=== PATIENT | male | born 1955 | race Caucasian/White ===

== ENCOUNTER 2017-01-29 19:12 | Emergency (ER) | payer OTHER, MEDICAID ==
[~2017-01-29 19:12] MED LIST: AMLODIPINE10 M1 PO; ASCRIPTIN1 TAB PO; ASPIR 8181 MG PO; CARVEDILOL12.5 M1 PO; CARVEDILOL3.125 M1 PO; CLONIDINE HCL0.1 MG PO; CLONIDINE HCL0.2 MG PO; COMINH INH; COUMADIN1 MG PO; HYDRALAZINE HYD50 MG PO; INSULIN SQ; LAC PO; LASIX40 MG PO; LEV250 PO; LIPITOR40 MG PO; RENAL CAPS1 SGL PO; RENAL MULTIVIT PO
[2017-01-29 20:20] VITALS: BP 150/76
== END 2017-01-29 20:20 | disposition home or self-care (01) ==
LOC: ED 19:12
DX: L73.9 Follicular disorder, unspecified (principal); I12.0 Hypertensive chronic kidney disease with stage 5 chronic kidney disease or end stage renal disease; E11.22 Type 2 diabetes mellitus with diabetic chronic kidney disease; N18.6 End stage renal disease; Z99.2 Dependence on renal dialysis; Z88.8 Allergy status to other drugs, medicaments and biological substances; Z89.612 Acquired absence of left leg above knee; Z89.611 Acquired absence of right leg above knee

== ENCOUNTER 2018-08-13 20:04 | Inpatient (IN) | payer OTHER, MEDICAID ==
[~2018-08-13] VITALS: Ht 104.1 cm; Wt 64.6 kg
[~2018-08-13 20:04] MED LIST changes: -CLONIDINE HCL0.2 MG PO; +CLONIDINE HYDR0.3 M1 PO; -COUMADIN1 MG PO; +COUMADIN2 MG PO
[2018-08-13 20:07] VITALS: Ht 104.1 cm; Wt 64.6 kg
[2018-08-13 20:54] LABS: BASOPHIL % 0.4 % (0-2); PLATELET COUNT 288 x10^3mcL (130-400); RED CELL DISTRIBUTION WIDTH 14.4 % (11.5-14.5)
[2018-08-13 21:04] LABS: CALCIUM 8.3 mg/dL (8.5-10.1); CARBON DIOXIDE 35.3 mmol/L (21-32); CHLORIDE SERUM 96 mmol/L (98-107); CREATININE SERUM 3.2 mg/dL (0.7-1.3); GFR1 21 mL/min; GLUCOSE SERUM 204 mg/dL (74-106); POTASSIUM SERUM 3.5 mmol/L (3.5-5.1); SODIUM SERUM 134 mmol/L (136-145)
[2018-08-13 21:14] LABS: ALBUMIN 2.9 g/dL (3.4-5.0); ALKALINE PHOSPHATASE 104 U/L (46-116); ALT/SGPT 14 U/L (16-63); AST/SGOT 13 U/L (15-37); BILIRUBIN TOTAL 0.33 mg/dL (0.20-1.00)
[2018-08-13] MEDS ORDERED: SENNA8.6 M2 PO (23:00)
[2018-08-13] MEDS ORDERED: COLACE100 MG PO (23:01)
[2018-08-13 23:58] VITALS: BP 144/58
[2018-08-14 00:13] LABS: CHOLESTEROL/HDL RATIO 2.2; PHOSPHOROUS 4.9 mg/dL (2.5-4.9)
[2018-08-14 00:34] LABS: FREE T4 0.55 ng/dL (0.76-1.46)
[2018-08-14 00:37] LABS: FREE THYROXINE INDEX 0.5 ug/dL (1.4-4.5); T4(THYROXINE) 1.1 ug/dL (4.7-13.3)
[2018-08-14 00:56] LABS: T3 TOTAL 0.22 ng/mL
[2018-08-14 04:18] VITALS: BP 144/61
[2018-08-14 06:24] LABS: BASOPHIL % 0.4 % (0-2); PLATELET COUNT 265 x10^3mcL (130-400); RED CELL DISTRIBUTION WIDTH 14.4 % (11.5-14.5)
[2018-08-14 07:09] LABS: CALCIUM 8.1 mg/dL (8.5-10.1); CREATININE SERUM 3.6 mg/dL (0.7-1.3); POTASSIUM SERUM 3.8 mmol/L (3.5-5.1)
[2018-08-14 08:12] VITALS: BP 142/60
[2018-08-14 12:42] VITALS: BP 148/55
[2018-08-14 16:32] VITALS: BP 152/53
[2018-08-14 20:59] VITALS: BP 170/59
[2018-08-14 21:30] VITALS: BP 158/57
[2018-08-15 05:32] VITALS: BP 168/63
[2018-08-15 07:54] LABS: CALCIUM 8.7 mg/dL (8.5-10.1); CARBON DIOXIDE 29.7 mmol/L (21-32); MAGNESIUM 2.2 mg/dL (1.8-2.4); PHOSPHOROUS 6.7 mg/dL (2.5-4.9); POTASSIUM SERUM 4.5 mmol/L (3.5-5.1)
[2018-08-15 08:10] LABS: BASOPHIL % 0.5 % (0-2)
[2018-08-15 08:12] LABS: PLATELET COUNT 340 x10^3mcL (130-400)
[2018-08-15 08:13] LABS: RED CELL DISTRIBUTION WIDTH 14.9 % (11.5-14.5)
[2018-08-15 08:29] LABS: CREATININE SERUM 4.7 mg/dL (0.7-1.3)
[2018-08-15 09:08] VITALS: BP 152/48
[2018-08-15 13:59] VITALS: BP 155/54
[2018-08-15 16:40] VITALS: BP 162/59
[2018-08-15 21:28] VITALS: BP 160/59
[2018-08-16 05:42] VITALS: BP 173/61
[2018-08-16 06:08] LABS: CALCIUM 8.9 mg/dL (8.5-10.1); CARBON DIOXIDE 32.1 mmol/L (21-32); POTASSIUM SERUM 3.9 mmol/L (3.5-5.1)
[2018-08-16 07:15] LABS: BASOPHIL % 0.4 % (0-2); PLATELET COUNT 334 x10^3mcL (130-400); RED CELL DISTRIBUTION WIDTH 14.4 % (11.5-14.5)
[2018-08-16 09:08] VITALS: BP 149/65
== END 2018-08-16 12:03 | disposition left against medical advice (07) | DRG 314 ==
LOC: ED 20:04 → DU 22:57
PROVIDERS: Emergency Medicine; Family Medicine
PROC: 0HQCXZZ Repair Left Upper Arm Skin, External Approach (ICD-10-PCS; principal; 2018-08-13)
DX: T82.838A Hemorrhage due to vascular prosthetic devices, implants and grafts, initial encounter (principal); N18.6 End stage renal disease; I50.43 Acute on chronic combined systolic (congestive) and diastolic (congestive) heart failure; B02.8 Zoster with other complications; D68.32 Hemorrhagic disorder due to extrinsic circulating anticoagulants; I13.2 Hypertensive heart and chronic kidney disease with heart failure and with stage 5 chronic kidney disease, or end stage renal disease; Z68.41 Body mass index [BMI] 40.0-44.9, adult; E44.0 Moderate protein-calorie malnutrition; E87.1 Hypo-osmolality and hyponatremia; E11.22 Type 2 diabetes mellitus with diabetic chronic kidney disease; E11.42 Type 2 diabetes mellitus with diabetic polyneuropathy; L89.151 Pressure ulcer of sacral region, stage 1; H54.62 Unqualified visual loss, left eye, normal vision right eye; E78.5 Hyperlipidemia, unspecified; Z99.3 Dependence on wheelchair; Z99.2 Dependence on renal dialysis; Z89.612 Acquired absence of left leg above knee; Z89.611 Acquired absence of right leg above knee; F17.210 Nicotine dependence, cigarettes, uncomplicated
CPT/HCPCS: 82962; 83880; 84439; J2001; J2405; J3430; J3490; J7030; Q0092

== ENCOUNTER 2019-03-25 22:20 | Inpatient (IN) | payer OTHER, MEDICAID ==
[~2019-03-25] VITALS: Ht 132.1 cm; Wt 59.9 kg
[~2019-03-25 22:20] MED LIST changes: +COLACE100 MG PO; +SENNA8.6 M2 PO
[2019-03-25 22:26] VITALS: Ht 132.1 cm; Wt 59.9 kg
--- NOTE | 2019-03-25 22:38 | NUR ---
PT BROUGHT IN BY AMBULANCE AFTER CALLED 911 FOR DIARRHEA, DARK BLACK STOOL X 10DAYS. PER PARAMEDICS, PT HAS HAD GENERALIZED WEAKNESS WELL. PT COMPLAINS OF SHARP LOWER BACK PAIN. PARAMEDICS ALSO STATED VERBALIZED PT STOPPED BLOOD THINNERS. PT AWAKE, ALERT, RESPIRATIONS EVEN AND UNLABORED. SAFETY PRECAUTIONS IN PLACE
--- NOTE | 2019-03-25 23:16 | NUR ---
XRAY AT BEDSIDE
--- NOTE | 2019-03-25 23:41 | NUR ---
HOTEL ADMINISTRATIVE ASSISTANT IN ROOM DRAWING BLOOD
[2019-03-26] VITALS (7 sets, daily range): BP systolic 112–157; BP diastolic 50–96
[2019-03-26 00:16] LABS: BASOPHIL % 1.5 % (0-2); PLATELET COUNT 184 x10^3mcL (130-400)
[2019-03-26 00:30] LABS: BILIRUBIN TOTAL 0.7 mg/dL (0.20-1.00); CALCIUM 9.3 mg/dL (8.5-10.1); CARBON DIOXIDE 36.9 mmol/L (21-32); CREATININE SERUM 3.4 mg/dL (0.7-1.3); POTASSIUM SERUM 3.5 mmol/L (3.5-5.1); TOTAL PROTEIN, SERUM 6.6 g/dL (6.4-8.2)
[2019-03-26 00:42] LABS: ALBUMIN 2.4 g/dL (3.4-5.0)
[2019-03-26] MEDS ORDERED: ELIQUIS2.5 MG PO (01:27)
[2019-03-26] MEDS ORDERED: GOOD SENSE ASPI81 M3 PO (01:27)
[2019-03-26] MEDS ORDERED: BISAC-EVAC10 MG RC (01:28)
[2019-03-26] MEDS ORDERED: TOPROL XL25 MG PO (01:29)
[2019-03-26] MEDS ORDERED: RENVELA800 M1 PO (01:29)
[2019-03-26] MEDS ORDERED: MULTI-VITAMINS1 TAB PO (01:29)
[2019-03-26] MEDS ORDERED: PANTOPRAZOLE SO40 M1 PO (01:29)
--- NOTE | 2019-03-26 02:12 | NUR ---
ABAD ATTEMPTING IV ACCESS
[2019-03-26 02:15] LABS: CHOLESTEROL/HDL RATIO 1.7
[2019-03-26 02:21] LABS: T3 TOTAL 0.15 ng/mL
[2019-03-26 02:28] LABS: FREE T4 1.01 ng/dL (0.76-1.46)
[2019-03-26 02:31] LABS: FREE THYROXINE INDEX 1.4 ug/dL (1.4-4.5)
--- NOTE | 2019-03-26 02:57 | NUR ---
RECEIVED PT FROM ED. PT A/OX4. DENIES SOB ON RA. PT WITH BILATERAL ABOVE KNEE AMPUTATIONS. IN NO ACUTE DISTRESS. IV PATENT, INTACT. ORIENTED PT TO ROOM AND SURROUNDINGS. CALL LIGHT WITHIN REACH, BED IN LOW POSITION. WILL CONTINUE TO MONITOR.
[2019-03-26 06:32] LABS: BASOPHIL % 1.4 % (0-2); PLATELET COUNT 178 x10^3mcL (130-400)
[2019-03-26 06:38] LABS: RED CELL DISTRIBUTION WIDTH 23.8 % (11.5-14.5)
[2019-03-26 06:50] LABS: CALCIUM 9.5 mg/dL (8.5-10.1); CARBON DIOXIDE 32.3 mmol/L (21-32); CREATININE SERUM 3.6 mg/dL (0.7-1.3); PHOSPHOROUS 4.5 mg/dL (2.5-4.9); POTASSIUM SERUM 3.8 mmol/L (3.5-5.1)
--- NOTE | 2019-03-26 07:04 | NUR ---
PT RESTING IN NO ACUTE DISTRESS. RR EVEN/UNLABORED. CALL LIGHT WITHIN REACH, BED IN LOW POSITION. WILL ENDORSE CARE TO ONCOMING SHIFT
--- NOTE | 2019-03-26 08:21 | NUR ---
COMPLAINTS OF BACK PAIN STATED SEVERE 10/10 ON PAIN SCALE, REFUSED NORCO OFFERRED. WILL NOTIFY DOCTOR.
--- NOTE | 2019-03-26 09:12 | NUR ---
DOCTOR FERMIN SOLIS AT BEDSIDE.
--- NOTE | 2019-03-26 09:21 | NUR ---
DILAUDID 0.5MG IVP SLOWLY GIVEN FOR SEVERE BACK PAIN. NO ADVERSE REACTION NOTED. WILL CONTINUE TO MONITOR.
--- NOTE | 2019-03-26 09:30 | NUR ---
NOTED DRY SCABS TO RIGHT GROIN, PATIENT'S SPOUSE STATED THAT FROM PACEMAKER PROCEDURE, PHOTO TAKEN, KEPT ELECTRICAL AND RADIO MECHANIC. BLANCHABLE REDNESS TO SACRAL AREA, Z GUARD APPLIED, COVERED WITH OPTIFOAM, PHOTO TAKEN, DRY SCABS TO CHEST PHOTO TAKEN. NOTED PATIENT ABLE TO GRASP SIDERAIL AND TURN SELF IN BED.
[2019-03-26 09:41] LABS: rbc morphology (normal/abnorm) ABNORMAL (NORMAL)
--- NOTE | 2019-03-26 10:02 | NUR ---
PATIENT AND SPOUSE VERBALIZED UNDERSTANDING PLAN OF EGD STATED DOCTOR WAS HERE ALREADY EXPLAINED TO THEM. PATIENT IS AWAKE, ALERT, ORIENED X4, STATED I COULDN'T SEE IT WELL MY WILL SIGN IT FOR ME, CONSENT FOR ESOPHAGASTRODUODENOSCOPY SIGNED BY PATIENT'S SPOUSE WHO IS AWAKE, ALERT, ORIENTED X4.
--- NOTE | 2019-03-26 10:22 | NUR ---
DOCTOR RAI AND MEDICAL TEAM MADE AM ROUND. PATIENT AND SPOUSE MADE AWARE OF CURRENT CONDITION AND PLAN OF CARE.
--- NOTE | 2019-03-26 10:24 | NUR ---
OFF FLOOR VIA BED FOR EGD ACCOMPANIED BY HIS SPOUSE.
--- NOTE | 2019-03-26 11:35 | NUR ---
RECEIVED BACK FROM EGD VIA BED, SEEN AAOX4. BREATHING E/U ON ROOM AIR. SPOUSE STATED SHE MADE AWARE OF THE RESULT OF EGD. V/S STABLE, O2SAT 96% ON ROOM AIR. TELE# [address] STATED BACK PAIN TOLERABLE. ON REGULAR DIET FOR LUNCH, PATIENT AND FAMILY MADE AWARE. CALL LIGHT PLACED WITHIN EASY REACH. SIDERAILS UP X2.
--- NOTE | 2019-03-26 13:19 | NUR ---
NOTED NEW ORDER FOR HEMODILAYSIS. [facility] NOTIFIED.
--- NOTE | 2019-03-26 13:59 | NUR ---
HEMODIALYSIS ONGOING AT BEDSIDE. PATIENT STATED HAVING BACK PAIN, REFUSED FLEXERIL AND NORCO OFFERRED STATED NOT HELPING ONLY DILAUDID. DOCTOR EFREN BAUMANND.
--- NOTE | 2019-03-26 17:26 | NUR ---
HEMODILAYSIS COMPLETED, NET FLUID OUTPUT 2 LITERS. PRESSURE DRSG NOTED TO ELIZABETH AV SHUNT SITE. NO ANY DISTRESS NOTED. BP 112/51, HR 60, RR 18, O2SAT 96% ON ROOM AIR, AFEBRILE. COMPLAINTS OF SEVERE BACK PAIN 9/10 ON PAIN SCALE. DILAUDID 0.5MG IVP GIVEN AT THIS TIME. WILL CONTINUE TO MONITOR.
--- NOTE | 2019-03-26 18:42 | NUR ---
TOLERATED TO DINNER WELL. DENIES NAUSEA. DRSG TO ELIZABETH DRY,INTACT, REMINDED PATIENT NOT TO REMOVE DRSG TO PREVENT ANY BLEEDING TO AV SHUNT PUNCTURE SITE, PATIENT VERBALIZED UNDERSTANDING. APPEARS COMFORTABLE WATCHING TV AT THIS TIME.
--- NOTE | 2019-03-26 19:57 | NUR ---
RECEIVED PT FROM PREVIOUS SHIFT. PT A/OX4. PT A/OX4. DENIES SOB ON RA. IV PATENT, INFUSING NS AT 25ML/HR WITH NO S/S OF INFILTRATION. CALL LIGHT WITHIN REACH, BED IN LOW POSITION. WILL CONTINUE TO MONITOR.
--- NOTE | 2019-03-27 00:17 | NUR ---
NOTIFIED DR EL OF CONCERN FOR LOW BLOOD SUGAR. ORDER RECEIVED FOR FLUIDS TO SWITCH TO D5 1/2 NS @25ML/HR.
--- NOTE | 2019-03-27 00:44 | NUR ---
PT RESTING IN NO ACUTE DISTRESS. RR EVEN AND UNLABORED. CALL LIGHT WITHIN REACH, BED IN LOW POSITION. WILL CONTINUE TO MONITOR.
[2019-03-27 06:13] LABS: PLATELET COUNT 157 x10^3mcL (130-400)
[2019-03-27 06:21] VITALS: BP 121/50
[2019-03-27 06:36] LABS: CALCIUM 9.3 mg/dL (8.5-10.1); CARBON DIOXIDE 29.4 mmol/L (21-32); CREATININE SERUM 2.4 mg/dL (0.7-1.3); POTASSIUM SERUM 3.7 mmol/L (3.5-5.1); RED CELL DISTRIBUTION WIDTH 24.6 % (11.5-14.5)
--- NOTE | 2019-03-27 07:13 | NUR ---
RECEIVED REPORT FROM BERENICE EDGAR. PT RESTING COMFORTABLY INBED. IV TO RT THUMB IS PATENT AND INFUSING D5 1/2 NS @ 25 ML/HR. NO REDNESS OR PAIN. TELE # [address] PT DENIES CHEST PAIN. PT ON ROOM AIR. NO C/O SOB AND NO DISTRESS NOTED. ALL QUESTIONS AND CONCERNS ADDRESSED.
[2019-03-27 09:40] VITALS: BP 134/57
--- NOTE | 2019-03-27 10:10 | NUR ---
ROUNDS: DR VENCES, RESIDENTS, PRIMARY RN, AND MOTORCYCLE POLICE OFFICER AT BEDSIDE. PLAN IS TO CONTROL PAIN, MONITOR FOR ANY SIGNS OF BLEEDING AND MONITOR H/H FOR DECREASE. IF PT REMAINS STABLE HE MAY DISCHARGE TOMORROW. PT VERBALIZED UNDERSTANDING AND ALL QUESTIONS AND CONCERNS WERE ADDRESSED.
[2019-03-27 11:31] LABS: BAND NEUTROPHIL 0 % (0-10); BASOPHIL 0 % (0-2); MONOCYTE 10 % (0-7); SEGMENTED NEUTROPHILS 65 % (37-75)
[2019-03-27 11:32] LABS: PLATELET MORPHOLOGY PLATELETS DECREASED; rbc morphology (normal/abnorm) ABNORMAL (NORMAL)
[2019-03-27 13:00] VITALS: BP 122/49
--- NOTE | 2019-03-27 13:30 | NUR ---
PT GLUCOSE RECHECKED AND IS 73. PT IS CURRENTLY EATING AND IS ASYMPTOMATIC.
--- NOTE | 2019-03-27 14:04 | NUR ---
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 Labs: BUN 4.0L, CREAT 2.4H, WBC 3.9L Meds: Ambien, D50%, Humulin, Lipitor, zofran Diet: Regular PO Intake: not documented Ht: 132.08 cm (52") Wt: 59.8 kg (131#) BMI: 34.3 kg/m2 (obesity) Bed scale: 59.8kg IBW: 58# (26 kg) %IBW: 225 UBW: Age: 63/M Food Allergies: NKFA Skin: blanchable erythema to sacrum Chris: 16 Edema: none GI: reports dark/tarry stool Last BM: 03/26 Per H&P, Pt is a 63yoM with PMH ESRD on TThSa HD, HTN, DM, CHF, atrial fib with pacemaker placed one month prior, bilateral AKAs in 2015, cervical disk degeneration s/p cervical spinal surgery who presented to the ED c/o dark bloody stools x1 month. RDN Visit (03/27): Patient said that he did not eat his breakfast as he had poor appetite but he said that his appetite is starting to come back now. Pt's BMI is inaccurate as patient has bilateral AKA's. FNS received consult for 'malnutrition w/albumin 2.4' on 03/26. Per progress note (03/27) Patient underwent EGD by Dr Holman yesterday which showed questionable erosion or ulcer with a visible red dot that could be the source of bleeding, but not 100% accurate at this time and diffuse gastritis w/evidence of healing erosions and ulcers in the past. GI recommended to await the clinical response to the current intervention and monitor for signs of ongoing bleeding. Cont. HD as scheduled, DM under control (A1C 4.5), [facility], INCO diet. Discussed recommendations with Dr. Ngo, she will place the new diet order. Patient not willing to drink Nepro. Problem with: N/V/D/C: pt reported to have diarrhea yesterday Problems with: Chewing/Swallowing: certain foods are difficult to chew Current appetite: fair Recent wt change: none %wt change: N/A Vitamin/Supplement use: none Special diet at home: regular Physical activity: pt has AKA Nutrition education given: NCM handout on "CKD Stage 5 Tips for people on dialysis' was provided and concepts like portion control, avoidance of sugary beverages was discussed. Patient said that he cannot read properly and so his will read for him. Food-drug interactions: Lipitor- Avoid grapefruit Education given: no Estimated Nutritional Needs Based on current body weight 59.8 kg Energy: 7226-1426 kcal/d (25-30 kcal/kg) Protein: 71-89 g/d (1.2-1.5 g/kg) - HD Fluid: 9732-8715 ml/d (1 ml/kcal) or per doctor Nutrition Diagnosis 1. Increased nutrient needs related to increased metabolic demands as evidenced by Intervention 1. Recommend changing diet to Renal ([facility]). Monitor/Evaluate Goal: PO intake at least 75% of estimated needs Monitor: PO intake, Labs, GI function F/U in 2-3 days as high risk 03/29-
--- NOTE | 2019-03-27 14:05 | NUR ---
1. Recommend changing diet to Renal ([facility]).
[2019-03-27 17:25] VITALS: BP 114/56
--- NOTE | 2019-03-27 19:39 | NUR ---
REPORT GIVEN TO ALEXA EDGAR. PT RESTING COMFORTABLY IN BED. ALL NEEDS MET. ALL QUESTIONS AND CONCERNS ADDRESSED. ALL CARES ENDORSED.
--- NOTE | 2019-03-27 19:52 | NUR ---
RECEIVED SITTING IN BED , DENIES ANY PAIN/DISCOMFROT ATTHIS TIME. SKIN WARM AND DRY TO TOUCH WITH BLANCHABLEREDNESS TO THE BUTTOCKS/SAROCOCCYGEAL AREA. ASSISTEDIN REPOSTIONING FOR COMFORT.IV ACCESS AT THE SEAN INTACT, PT REFUSED IVF D5 1/2NS TO BE CONNECTED. PT ON 1200CC/DYA FLUID RESTRICTION. WILL CONTINUE TO MONITOR.
--- NOTE | 2019-03-27 20:45 | NUR ---
PT ASKING FOR PAIN IV MEDS, REFUSED PO MEDS, EXPLAINED TO PATIENT IV PAIN MEDS HAD BEED DISCONTINUED. DR LEVY WAS CALLED [phone], [facility] FOR RETURN CALL.
--- NOTE | 2019-03-27 21:19 | NUR ---
DR SCHWARTZ DID NOT RETURN THE CALL, [place] PT STILL WAITNG FOR IV PAIN IV MED.WXPLAINED TO PT CALLED X3.
[2019-03-27 21:25] VITALS: BP 120/61
--- NOTE | 2019-03-27 21:50 | NUR ---
NO RETURN CALL FR DR MESA=KRISTIE, PT WAS ENCOURAGED TO TAKEDILAUDID PO WHILE WAITNG FOR IV ORDER FR , PT AGREED , DILAUDID 2MG PO GIVEN ORDERED. ASSISTED PT TO ;IE DOWN IN BED. EXTRA COVER GIVEN FOR COMFORT. CALL LIGHT WITHIN REACH.
--- NOTE | 2019-03-28 00:30 | NUR ---
PT CLAIMED STILL WANTING DILAUDID IV FOR LOW BACK PAIN. DR SCHWARTZ WAS CALLED AT [phone] AWAITING FOR RETURN CALL. PATIENT WAS NOTIFIED.
--- NOTE | 2019-03-28 02:47 | NUR ---
ULTRAM 50MG PO WAS GIVEN, PT STILL ASKING FOR DILAUID, DR AU/DR CLAY WAS NOTIFIED X 2, STATED CAN ORDER DUILAUDI PO X1 DOSE ONLY NO IV . PT MADE AWARE OF MD'S ORDERED AND CARRIED OUT AD=FTER VIERIFIED BY PHARMACIST.
[2019-03-28 04:58] VITALS: BP 134/66
[2019-03-28 06:16] LABS: BASOPHIL % 1.1 % (0-2); PLATELET COUNT 174 x10^3mcL (130-400)
--- NOTE | 2019-03-28 06:22 | NUR ---
BLOOD SUGAR=67MG/DL, APPLE JUICE 350CC WITH 5PKTS OF SUGAR GIVEN, 2 PARDEEP CRACKERS, TOLERATED WELL. STILL WITH INTERMITTENT LOW BACK PAIN RELIEVED BY DILAUDID PO. TRIED TO RECHCEK BLOOD SUGAR 30MINS AFTER APPLEJUICEAND PARDEEP CRACKERS, PT BADLY REFUSED, PT CLAIMED FEELS JAMES.
[2019-03-28 06:39] LABS: CALCIUM 9.3 mg/dL (8.5-10.1); CARBON DIOXIDE 31.6 mmol/L (21-32); CREATININE SERUM 3.4 mg/dL (0.7-1.3); POTASSIUM SERUM 3.9 mmol/L (3.5-5.1)
[2019-03-28 06:57] LABS: RED CELL DISTRIBUTION WIDTH 23.5 % (11.5-14.5)
[2019-03-28 06:58] LABS: rbc morphology (normal/abnorm) ABNORMAL (NORMAL)
--- NOTE | 2019-03-28 07:19 | NUR ---
RECEIVED REPORT FROM ALEXA EDGAR. PT RESTING IN BED AND CONTINUES TO COMPLAIN ABOUT LOWER BACK PAIN. PER ALEXA PT WAS MEDICATED AT OR AROUND 0300 AND 0500 (SEE eMAR). PT IS MEDSURG AND DENIES CHEST PAIN. PT ON ROOM AIR. NO C/O SOB AND NO DISTRESS NOTED. IV TO SEAN IS BENT AND NEW ACCESS WILL NEED TO BE ATTEMPTED. ALL QUESTIONS AND CONCERNS ADDRESSED.
[2019-03-28 08:30] VITALS: BP 119/60
--- NOTE | 2019-03-28 08:48 | NUR ---
IN TO SEE PATIENT. PT IS AGITATED AND C/O PAIN. PT IS REQUESTING IV DILAUDID. INFORMED PATIENT THAT HE ONLY HAS PO DILAUDID AVAILABLE. PT REQUESTED THAT I CALL THE DOCTOR FOR IV DILAUDID. I INFORMED THE PATIENT THAT HIS IV IS BAS AND HE MUST HAVE A NEW ONE INSERTED. PT BECAME ANGRY AND STATED THAT HE HAS BEEN ASKING FOR A NEW ONE SINCE YESTERDAY. I INFORMED THE PATIENT THAT I INSERTED A NEW IV TO UPPER RT ARM YESTERDAY BEFORE LEAVING AND THAT THE NURSE LAST NIGHT ADMINISTERED MEDICATION THROUGH IT SUCCESSFULLY. HE STATED THAT WAS A LIE. PT STATED THAT HE WANTS TO AMA IF HIS PAIN IS NOT CONTROLLED. I SPOKE WITH TARA SCHWARTZ AND SHE STATED THAT THE PATIENT HAS PO DILAUDID 2MG AND HE WILL NOT BE RECEIVING IV DILAUDID. THE GAS TRANSFER OPERATOR DISCUSSED THE RISKSOF LEAVING AMA. I CONFIRMED THAT THE PATIENT UNDERSTOOD THE RISKS. THE PATIENT WAS INSISTENTON LEAVING WHEN HE WAS INFORMED THAT IV DILAUDID WOULD NOT BE ORDERED AND CALLED SOMEONE TO PICK HIM UP. BUSINESS INTELLIGENCE ARCHITECT WAS CALLED TO NOTIFY THAT PATIENT WOULD NO LONEGER NEED DIALYSIS TODAY. THE PATIENTS STATED THAT SHE WILL CALL HIS DIALYSIS CENTER AND SEE IF THEY HAD ANY OPENINGS FOR SATURDAY. THE ID BANDS WERE CUT AND THE PATIENT WAS ESCORTED TO THE LOBBY VIA WHEELCHAIR.
--- NOTE | 2019-03-28 09:18 | NUR ---
PT REQUESTING TO LEAVE AMA. RECORDS MANAGEMENT CLERK AND RN NOTIFIED AND MADE AWARE. HD NURSE ISIAH CALLED AND NOTIFIED THAT PT IS LEAVING AMA AND HD IS NOT NEEDED AT THIS TIME. ISIAH VERBALIZED UNDERSTANDING. PRIMARY RN NOTIFIED WELL
== END 2019-03-28 09:40 | disposition left against medical advice (07) | DRG 377 ==
LOC: ED 22:20 → DU 03-26 01:19 → MU 03-26 01:19 → DU 03-26 02:43 → MU 03-27 10:24
PROVIDERS: Emergency Medicine; Internal Medicine Gastroenterology; ADMIT General Practice
PROC: 0W3P8ZZ Control Bleeding in Gastrointestinal Tract, Via Natural or Artificial Opening Endoscopic (ICD-10-PCS; principal; 2019-03-26 09:00)
PROC: 0DB68ZX Excision of Stomach, Via Natural or Artificial Opening Endoscopic, Diagnostic (ICD-10-PCS; 2019-03-26 09:00)
DX: K25.4 Chronic or unspecified gastric ulcer with hemorrhage (principal); N18.6 End stage renal disease; N17.0 Acute kidney failure with tubular necrosis; E43 Unspecified severe protein-calorie malnutrition; D62 Acute posthemorrhagic anemia; I13.2 Hypertensive heart and chronic kidney disease with heart failure and with stage 5 chronic kidney disease, or end stage renal disease; I50.22 Chronic systolic (congestive) heart failure; Z68.41 Body mass index [BMI] 40.0-44.9, adult; E11.22 Type 2 diabetes mellitus with diabetic chronic kidney disease; I48.91 Unspecified atrial fibrillation; E03.9 Hypothyroidism, unspecified; M50.30 Other cervical disc degeneration, unspecified cervical region; Z89.022 Acquired absence of left finger(s); Z89.612 Acquired absence of left leg above knee; Z89.611 Acquired absence of right leg above knee; Z99.3 Dependence on wheelchair; Z95.0 Presence of cardiac pacemaker; Z99.2 Dependence on renal dialysis; Z79.84 Long term (current) use of oral hypoglycemic drugs
CPT/HCPCS: 43235; 82962; 83880; 84439; G0378; J1170; J1200; J1610; J1885; J2250; J2310; J2405; J2916; J3010; J3490; J7030; Q0092